=== PATIENT | male | born 1990 | race Caucasian/White ===

== ENCOUNTER 2023-04-13 17:13 | Emergency (ER) | payer OTHER, SELFPAY ==
[2023-04-13 17:14] VITALS: BP 138/64; PULSE 76; RESP 22; TEMP 36; O2SAT 100; BMI 37.4
--- NOTE | 2023-04-13 17:25 | CT_ITS ---
STUDY: CT Abdomen And Pelvis W/O Contrast Injection 04/13/2023 6:31 PM REASON FOR EXAM: Male, 32 years old. ABDOMINAL PAIN left flank pain TECHNIQUE: Transaxial images were obtained without oral contrast, and without intravenous contrast. Individualized dose optimization techniques were used for this CT. COMPARISON: None FINDINGS: The visualized lung bases are unremarkable. The visualized portions of the heart are within normal limits. There is hepatomegaly with diffuse hepatic enlargement. Unremarkable gallbladder and extrahepatic biliary system. Unremarkable spleen. Unremarkable pancreas. Unremarkable bilateral adrenal glands. No acute findings of the right kidney. Moderate hydroureter and hydronephrosis caused by 5.1 mm mid left ureteral stone. Unremarkable visualized stomach. Unremarkable small intestine. Unremarkable colon. The appendix is visualized and appears unremarkable. There are no acute findings of the abdominal aorta. Unremarkable inferior vena cava. Subcentimeter mesenteric lymph nodes. Unremarkable urinary bladder. There is an umbilical hernia containing fat. Unremarkable osseous structures. CT/Abdomen/Pelvis without Cont IMPRESSION: (NOT LISTED IN ORDER OF SIGNIFICANCE) Moderate hydroureter and hydronephrosis caused by 5.1 mm mid left ureteral stone. Enlarged liver. Other findings as above. Electronically Signed: Diaz Nunez MD at 18:34 [facility] ,
--- NOTE | 2023-04-13 17:26 | EDS_ITS ---
<Statement entered by Gemma Siu MD - 04/14/23 00:50> I have personally performed a face to face assessment of the patient and have reviewed the [facility] Note. Patient presents with spouse secondary to left flank pain and vomiting. Patient had onset of left flank pain around 9 or 930 this morning accompanied with nausea and vomiting. He denies history of kidney stone. No recent illness. Patient sitting upright in bed. Uncomfortable but in no acute distress. Head and neck examination unremarkable. Heart is regular rate and rhythm. Lung sounds are clear. Abdomen is soft with no reproducible tenderness. Mild left CVA tenderness. CBC and chemistry studies significant for creatinine 1.49. We do not have any prior values to compare to. Urinalysis reveals no evidence of infection. CT flank reveals a 5 mm left mid ureteral stone. Patient's pain is well-controlled at this time. He will be discharged with analgesics, antiemetics, and Flomax. He is referred to Dr. aVldez for follow- up. Return instructions given. HPI History of Present Illness Chief Complaint: Flank Pain Narrative Narrative: 32-year-old male with PMH of DM2 developed left flank pain radiating around to the left abdomen this morning and started vomiting around 9 AM. No fever or chills. States he is urinating normally today without burning or hematuria. He thinks he had a normal bowel movement yesterday. No recent melena or hematochezia. No history of kidney stones or abdominal surgeries. PFSH PFS Medical History no medical history Home Medications ondansetron 4 mg disintegrating tablet 4 mg PO Q6H PRN nausea and vomiting #12 tabs 04/13/23 [Rx Last Taken Unknown] oxycodone-acetaminophen 5 mg-325 mg tablet (Percocet) 1 tab PO Q6H PRN pain 3 days #12 tabs 04/13/23 [Rx Last Taken Unknown] tamsulosin 0.4 mg capsule (Flomax) 0.4 mg PO DAILY 7 days #7 caps 04/13/23 [Rx Last Taken Unknown] Allergy/AdvReac Type Severity Reaction Status Date / Time No Known Allergies Allergy Verified 04/13/23 17:14 Family History no significant family his Surgical History no surgical history Social History Smoking Status: Unknown if ever smoked ROS ROS ED ROS Narrative Constitutional: Negative for fever, chills, malaise. CVS: Negative for chest pain. Respiratory: Negative for shortness of breath, cough. GI: Positive for abdominal pain, nausea, vomiting. Negative for diarrhea, const ipation, melena, hematochezia. : Negative for dysuria, hematuria or frequency. EXAM Physical Exam Narrative Exam Narrative: CONST: Patient pacing the room, and discomfort. EYES: Normal inspection. NECK: Normal inspection. RESP: No respiratory distress, CTAB. CVS: Regular rate and rhythm, no murmur, no gallop. ABD: Soft with left lower quadrant tenderness, no guarding or rebound, nondistended. Back: Normal inspection, left CVA tenderness. SKIN: Color normal, no rash, warm, dry, intact. EXTREMITIES: Normal appearance, no pedal edema. NEURO: Oriented x4. PSYCH: Normal affect. Const Vital Signs: 04/13/23 17:14 Temperature 96.8 F L Temperature Source Temporal Pulse Rate 76 Respiratory Rate 22 H Blood Pressure 138/64 H Blood Pressure Mean 88 Pulse Ox 100 Oxygen Delivery Method Room Air MDM MDM MDM Narrative Medical decision making narrative: History gathered from: Patient and spouse Differential: Kidney stone, pyelonephritis, UTI, diverticulitis among others Patient had sudden onset left flank pain radiating to the left abdomen with nausea and vomiting. He appears uncomfortable and is pacing the room. Vital signs are stable. He has left lower abdominal tenderness and left flank pain. No peritoneal signs. Workup shows white count of 15.7, normal electrolytes, creatinine 1.49 with no prior for comparison, and UA has blood but no infection. CT shows 5 mm left mid ureteral stone causing moderate hydroureter and hydronephrosis. Patient's pain was adequately controlled after Zofran, morphine and Toradol. He is tolerating p.o. intake and is comfortable going home. I prescribed Percocet, Zofran, and Flomax with return precautions and urology follow-up. He was discharged in stable condition. Lab Data Attestation: I reviewed the patient's lab results. Labs: Laboratory Results - last 24 hr 04/13/23 04/13/23 17:50 19:17 WBC 15.7 H RBC 5.15 Hgb 14.4 Hct 42.7 MCV 82.9 MCH 28.0 MCHC 33.7 RDW Std Deviation 39.4 RDW Coeff of Julieta 13.2 Plt Count 328 MPV 9.9 Immature Gran % (Auto) 0.400 Neut % (Auto) 89.5 H Lymph % (Auto) 6.3 L [place] % (Auto) 3.2 Eos % (Auto) 0.1 Baso % (Auto) 0.5 Absolute Neuts (auto) 14.0 H Absolute Lymphs (auto) 0.98 Nucleated RBC % 0 Sodium 141 Potassium 3.9 Chloride 114 H Carbon Dioxide 20.0 L Anion Gap 7 BUN 22 H Creatinine 1.49 H Estim Creat Clear Calc 104.77 Est GFR (MDRD) Af Amer 70 Est GFR (MDRD) Non-Af 58 L BUN/Creatinine Ratio 14.8 Glucose 153 H Calcium 10.2 H Urine Color Yellow Urine Clarity Sl. Cloudy Urine pH 6.0 Ur Specific [place] 1.025 Urine Protein 30 H Urine Glucose (UA) Normal Urine Ketones 150 A* Urine Occult Blood 250 H Urine Nitrite Negative Urine Bilirubin Negative Urine Urobilinogen 1 H Ur Leukocyte Esterase 25 H Urine RBC 10-25 SEEN Urine WBC 0-5 SEEN Ur Squamous Epith Cells 0-5 SEEN Amorphous Sediment 1+ URATE Urine Bacteria 0 SEEN Urine Mucus 3+ Radiography Diagnostic Testing: Clinical Impression(s) from Imaging Studies Abdomen/Pelvis CT 04/13/23 17:25 IMPRESSION: (NOT LISTED IN ORDER OF SIGNIFICANCE) Moderate hydroureter and hydronephrosis caused by 5.1 mm mid left ureteral stone. Enlarged liver. Other findings as above. Electronically Signed: Diaz Nunez MD at 18:34 EST Reading Location ID and State: [address] [place] [address] , Service support , Discharge Plan Triage Chief Complaint: Flank Pain Other Complaint: Nausea/Vomiting ED Midlevel Provider: Tonya Pedro ED Provider: Gemma Siu Dx/Rx/DC Orders Clinical Impression: Creatinine elevation, Calculus of left kidney Instructions: ED Kidney Stone with Pain Prescriptions: New oxycodone-acetaminophen [Percocet] 5-325 mg tablet 1 tab PO Q6H PRN (Reason: pain) 3 Days Qty: 12 0RF ondansetron 4 mg tablet,disintegrating 4 mg PO Q6H PRN (Reason: nausea and vomiting) Qty: 12 0RF tamsulosin [Flomax] 0.4 mg capsule 0.4 mg PO DAILY 7 Days Qty: 7 0RF Stand Alone Forms: ED Work / School Excuse Primary Care Provider: Care Physician,No Primary Referrals: William Valdez MD [Med Staff - Active Staff] - Care Physician,No Primary [Primary Care Provider] - Activity Restrictions/Additional Instructions: You have a 5 mm left-sided kidney stone. In addition to the prescribed medications you can take ibuprofen 600 mg every 6 hours for pain control. Return if symptoms worsen, follow-up with urology. Disposition Disposition: Home, Self Care
[2023-04-13] MEDS: Ondansetron 4 MG/2 ML Vial IV (17:43)
[2023-04-13] MEDS: 0.9% Normal Saline (1000mL) 1,000 ML 1000 ML IV (17:44)
[2023-04-13] MEDS: Ketorolac 30 MG/ML Syringe IV (17:45)
[2023-04-13 18:01] LABS: Absolute Lymphocyte Count 0.98 X10^3/uL (0.83-4.51); Basophil# 0.08 X10^3/uL; Basophil% 0.5 % (0-1); Eosinophil# 0.01 X10^3/uL; Eosinophils% 0.1 % (0-5); Hematocrit 42.7 % (40-54); Hemoglobin 14.4 g/dL (13.0-16.5); Lymphocyte # 0.98 X10^3/ul (0.83-4.51); Lymphocyte % 6.3 % (19-41); Mean Corp Hgb Conc 33.7 g/dL (32-36); Mean Corpuscular Volume 82.9 fL (80-94); Mean Platelet Vol. 9.9 fl (6.2-12.0); Monocyte% 3.2 % (0-10); NRBC Flagged by Analyzer 0 % (0-5); Neutrophil # 14.03 X10^3/uL (2.7-7.7); Neutrophil % 89.5 % (47-70); Platelet Count 328 K/mm3 (150-450); RBC Distribution Width CV 13.2 % (11.6-14.6); RBC Distribution Width SD 39.4 fl (35.1-43.9); Red Blood Count 5.15 M/mm3 (4.6-6.2); White Blood Count 15.7 K/mm3 (4.4-11.0)
[2023-04-13] MEDS: Morphine 4 MG/ML Syringe IV (18:09)
[2023-04-13 18:14] LABS: Anion Gap 7 (5-15); BUN 22 mg/dL (7-18); BUN/Creat Ratio 14.8 RATIO (10-20); Calcium,Total 10.2 mg/dL (8.5-10.1); Chloride 114 mmol/L (98-107); Creatinine, Serum 1.49 mg/dL (0.70-1.30); EST Glomerular Filtration Rate 58 mL/min (>60); Est Glom Filt Rate - Afr Amer 70 mL/min (>60); Estimated Creatinine Clearance 104.77 ml/min; Glucose 153 mg/dL (74-106); Potassium 3.9 mmol/L (3.5-5.1); Sodium Level 141 mmol/L (136-145)
[2023-04-13 19:24] LABS: Bacteria 0 SEEN /hpf (None Seen)
[2023-04-13 19:27] LABS: Color, Urine Yellow (Yellow); Glucose, Dipstick Normal (Normal); Leukocyte Esterase-Dipstick 25 /ul (Negative); Nitrite-Dipstick Negative (Negative); Occult Blood-Urine 250 /ul (Negative); Protein-Dipstick 30 mg/dl (Negative); Specific Gravity, Urine 1.025 (1.002-1.030); Urine Bilirubin Dipstick Negative (Negative); Urine Clarity Sl. Cloudy (Clear); Urine Urobilinogen 1 mg/dl (Normal)
[2023-04-13 19:33] LABS: Ketone-Dipstick 150 mg/dl (Negative)
[2023-04-13 19:46] LABS: White Blood Cells 0-5 SEEN /hpf (0-5)
[2023-04-13 19:47] LABS: Amorphous Sediment 1+ URATE; Mucous, Urine 3+ /hpf (<or=2+); Red Blood Cells-Urine 10-25 SEEN /hpf (0-5); Squamous Epithelial Cells - UA 0-5 SEEN /hpf (0-5)
[2023-04-13] MEDS: Oxycodone/Apap 5/325 Tablet PO (20:38)
[2023-04-13] MEDS: Ondansetron ODT 4 MG Tablet PO (20:38)
[2023-04-13 20:50] VITALS: BP 133/60; PULSE 78; RESP 16; TEMP 36.8; O2SAT 97
== END 2023-04-13 21:23 | disposition home or self-care (01) ==
PROVIDERS: Physician Assistant; Emergency Provider Emergency Medicine; Visit Provider Emergency Medicine
DX: N13.2 Hydronephrosis with renal and ureteral calculous obstruction (principal); R79.89 Other specified abnormal findings of blood chemistry
CPT/HCPCS: 74176; 80048; 81001; 85025; 96361; 96374; 96375; 99284; J7030; A4216; J2405

== ENCOUNTER 2023-09-26 11:35 | Emergency (ER) | payer OTHER, SELFPAY ==
[2023-09-26 11:36] VITALS: BP 184/163; PULSE 112; RESP 20; TEMP 35.7; O2SAT 96; BMI 30.2
--- NOTE | 2023-09-26 12:18 | CT_ITS ---
STUDY: CT ABDOMEN AND PELVIS WITHOUT CONTRAST REASON FOR EXAM: Male, 33 years old. Left flank pain. History of kidney stones. RADIATION DOSAGE (If Supplied By Facility): CTDIvol = ( 16.05 ) mGy, DLP = ( 818.01 ) mGycm TECHNIQUE: Transaxial images were obtained from the dome of the diaphragm to the symphysis pubis without oral contrast, and without intravenous contrast. Sagittal and coronal images were reconstructed. Individualized dose optimization techniques were used for this CT. COMPARISON: Comparison is made with prior study dated April 13, 2023. FINDINGS: The visualized lung bases are unremarkable. The visualized portions of the heart are within normal limits. Normal liver. Normal gallbladder and extrahepatic biliary system. Normal spleen. Normal pancreas. Normal bilateral adrenal glands. Normal right kidney. There is a moderate degree of left hydronephrosis with left perinephric stranding. Mild degree of left hydroureter due to a 3.3 mm calculus in the midportion of the left ureter. Normal visualized stomach. Normal small intestine. Normal colon. The appendix is visualized and appears normal. Normal abdominal aorta. Normal inferior vena cava. Normal retroperitoneum. Subcentimeter mesenteric lymph nodes. Normal urinary bladder. There are prostatic calcifications. Normal abdominal wall. Normal osseous structures. CT/Abdomen/Pelvis without Cont IMPRESSION: 3.3 mm calculus in the midportion of the left ureter causing left hydronephrosis and left hydroureter. Electronically Signed: Miguel Robledo MD at 12:55 EDT ,
--- NOTE | 2023-09-26 12:18 | EDS_ITS ---
HPI HPI - GI History of Present Illness Chief Complaint: Flank Pain Narrative Narrative: 33-year-old male past medical history of diabetes, previous ureterolithiasis presents with left-sided flank pain that began sometime last week. He had it intermittently. Last evening, it intensified. He states he has not urinated since yesterday evening but prior to this that, denies any dysuria, hematuria, or dark urine. No fevers or chills. He is nauseated and vomited twice today. He took an NSAID this morning at 5:00, approximately 7 hours ago. He presents with the same feeling that he had when he had a kidney stone previously. He states he followed up with urology at that time. No exacerbating or alleviating factors. Prior similar symptoms: Yes (With previous kidney stone) [facility] Medical History Diabetes Kidney stones Home Medications ?Medication ?Instructions ?Recorded ?Last Taken ?Type ketorolac 10 mg tablet 10 mg PO TID PRN pain 5 days #15 09/26/23 Unknown Rx tabs ondansetron 4 mg disintegrating 4 mg PO Q6H PRN nausea and 09/26/23 Unknown Rx tablet vomiting #15 tabs oxycodone-acetaminophen 5 mg-325 1 tab PO Q6H PRN pain 3 days #12 09/26/23 Unknown Rx mg tablet (Percocet) tabs tamsulosin 0.4 mg capsule (Flomax) 0.4 mg PO DAILY #10 caps 09/26/23 Unknown Rx Allergy/AdvReac Type Severity Reaction Status Date / Time No Known Allergies Allergy Verified 09/26/23 11:36 Social History Smoking Status: Current every day smoker tobacco type: e-cigarettes ROS ROS ED ROS Narrative Constitutional: No fever, no chills. HEENT: No sore throat. No neck pain. No loss of vision. No rhinorrhea. Cardiovascular: No chest pain. No palpitations. No pedal edema. Respiratory: No cough, no shortness of breath. Abdominal: No abdominal pain. 2 episodes of nausea and vomiting today. Genitourinary: Positive dysuria/unable to urinate. No hematuria. Positive left flank pain Musculoskeletal: No myalgias. No arthralgias. Neurologic: No headaches. No dizziness. No lightheadedness. Skin: No rash. No change in color. Psychiatric: No depression. No anxiety. EXAM Physical Exam Narrative Exam Narrative: Afebrile. Vital signs noted. HEENT: Normocephalic. Atraumatic. PERRL, EOMI. Neck soft and supple. No point tenderness or step off. Cardiovascular: Positive tachycardia no murmurs, rubs, or gallops appreciated. Respiratory: No tachypnea. Lungs clear to auscultation bilaterally. Gastrointestinal: Abdomen soft, nontender, with normoactive bowel sounds. No rebound or guarding. CVA tenderness to percussion. Neurological: Awake. Alert. Nonfocal, nonlateralizing. Skin: No rash. Normal color. No pallor. Musculoskeletal: No pedal edema. Full range of motion extremities. Const Vital Signs: 09/26/23 11:36 09/26/23 12:25 09/26/23 13:00 Temperature 96.2 F L Temperature Source Temporal Pulse Rate 112 H 80 78 Respiratory Rate 20 H 16 16 Blood Pressure 184/163 H 135/86 H 118/70 Blood Pressure Mean 170 102 86 Pulse Ox 96 99 99 Oxygen Delivery Method Room Air Room Air Room Air 09/26/23 14:06 09/26/23 14:52 Temperature 96.2 F L Temperature Source Pulse Rate 69 68 Respiratory Rate 16 16 Blood Pressure 124/76 H 122/72 H Blood Pressure Mean 92 88 Pulse Ox 99 100 Oxygen Delivery Method MDM MDM MDM Narrative Medical decision making narrative: In the differential for left flank pain is ureterolithiasis with ureteral colic versus musculoskeletal versus pyelonephritis. History and physical does not support pyelonephritis. I reviewed his prior ED visit and he did have a 5 mm ureteral calculus. He was treated with ondansetron, morphine, and Toradol here which had controlled his pain last time as well. I will obtain urinalysis and basic laboratory work along with CT imaging. I reviewed the laboratory work and WBC count normal at 8.1 with hemoglobin 14.1, platelet count normal at 323. Electrolyte panel shows BUN slightly elevated 22 with creatinine 1.36 but this is improved from prior. Glucose is elevated at 109 with a normal anion gap of 9 so I have no concern for diabetic ketoacidosis. Urinalysis does show 50 ketones but negative for infection with 0 WBCs and 5-10 RBCs. I reviewed the radiology report of the CT of the abdomen pelvis and there is a 3.3 mm calculus in the left mid ureter causing hydronephrosis and hydroureter. Upon repeat examination after morphine, Toradol, and ondansetron, patient is feeling improved. As he has no infection in his urine I do not feel antibiotics are indicated. He was written prescriptions for Percocet, Flomax, Zofran, and Toradol. He will follow-up with urology in 5 to 7 days. Return instructions were reviewed. Disposition is discharged home in stable condition. History & Record Review Discussion w/independent historian: Patient Additional record(s) reviewed:: Prior ED visit (Ureterolithiasis a 5 mm) Lab Data Attestation: I reviewed the patient's lab results. Labs: Laboratory Results - last 24 hr 09/26/23 09/26/23 11:45 14:01 WBC 8.1 RBC 4.97 Hgb 14.1 Hct 41.8 MCV 84.1 MCH 28.4 MCHC 33.7 RDW Std Deviation 39.8 RDW Coeff of Julieta 13.0 Plt Count 323 MPV 10.2 Immature Gran % (Auto) 0.400 Neut % (Auto) 58.1 Lymph % (Auto) 28.5 [place] % (Auto) 8.7 Eos % (Auto) 3.3 Baso % (Auto) 1.0 Absolute Neuts (auto) 4.7 Absolute Lymphs (auto) 2.30 Nucleated RBC % 0 Sodium 138 Potassium 3.9 Chloride 110 H Carbon Dioxide 19.0 L Anion Gap 9 BUN 22 H Creatinine 1.36 H Estim Creat Clear Calc 102.41 Est GFR (MDRD) Af Amer 77 Est GFR (MDRD) Non-Af 64 BUN/Creatinine Ratio 16.2 Glucose 109 H Calcium 9.6 Urine Color Yellow Urine Clarity Clear Urine pH 5.0 Ur Specific [place] 1.030 Urine Protein 30 H Urine Glucose (UA) Normal Urine Ketones 50 H Urine Occult Blood 25 H Urine Nitrite Negative Urine Bilirubin 1 H Urine Urobilinogen 1 H Ur Leukocyte Esterase Negative Urine RBC 5-10 SEEN Urine WBC 0 SEEN Ur Squamous Epith Cells 0-5 SEEN Calcium Oxalate Crystal 2+ Urine Bacteria 1+ Urine Mucus 2+ Radiography Diagnostic Testing: Clinical Impression(s) from Imaging Studies Abdomen/Pelvis CT 09/26/23 12:18 IMPRESSION: 3.3 mm calculus in the midportion of the left ureter causing left hydronephrosis and left hydroureter. Electronically Signed: Miguel Robledo MD at 12:55 EDT , Discharge Plan Triage Chief Complaint: Flank Pain ED Provider: John Holliday Dx/Rx/DC Orders Clinical Impression: Left ureteral calculus, Nausea and vomiting Instructions: ED Vomiting (Adult), ED Kidney Stone with Pain Prescriptions: New oxycodone-acetaminophen [Percocet] 5-325 mg tablet 1 tab PO Q6H PRN (Reason: pain) 3 Days Qty: 12 0RF ondansetron 4 mg tablet,disintegrating 4 mg PO Q6H PRN (Reason: nausea and vomiting) Qty: 15 0RF tamsulosin [Flomax] 0.4 mg capsule 0.4 mg PO DAILY Qty: 10 0RF ketorolac 10 mg tablet 10 mg PO TID PRN (Reason: pain) 5 Days Qty: 15 0RF Primary Care Provider: Care Physician,No Primary Referrals: William Valdez MD [Med Staff - Active Staff] - 5-7 Days Care Physician,No Primary [Primary Care Provider] - Print Language: Malawian Disposition Disposition: Home, Self Care Discharge Date/Time: 09/26/23 14:53
[2023-09-26] MEDS: Ketorolac 15 MG/ML Vial IV (12:22)
[2023-09-26] MEDS: Ondansetron 4 MG/2 ML Vial IV (12:23)
[2023-09-26] MEDS: Morphine 4 MG/ML Syringe IV (12:23)
[2023-09-26 12:25] VITALS: BP 135/86; PULSE 80; RESP 16; O2SAT 99
[2023-09-26] MEDS: 0.9% Normal Saline (1000mL) 1,000 ML 250 ML IV (12:30)
[2023-09-26 13:00] VITALS: BP 118/70; PULSE 78; RESP 16; O2SAT 99
[2023-09-26 13:03] LABS: Absolute Neutrophil Count 4.7 X10^3/uL (2.0-7.7); Basophil# 0.08 X10^3/uL; Eosinophil# 0.27 X10^3/uL; Eosinophils% 3.3 % (0-5); Hematocrit 41.8 % (40-54); Hemoglobin 14.1 g/dL (13.0-16.5); Lymphocyte % 28.5 % (19-41); Mean Corp Hgb Conc 33.7 g/dL (32-36); Mean Corpuscular Hgb 28.4 pg (27.0-32.0); Mean Corpuscular Volume 84.1 fL (80-94); Mean Platelet Vol. 10.2 fl (6.2-12.0); Monocyte% 8.7 % (0-10); NRBC Flagged by Analyzer 0 % (0-5); Neutrophil % 58.1 % (47-70); Platelet Count 323 K/mm3 (150-450); RBC Distribution Width SD 39.8 fl (35.1-43.9); Red Blood Count 4.97 M/mm3 (4.6-6.2); White Blood Count 8.1 K/mm3 (4.4-11.0)
[2023-09-26 13:08] LABS: Anion Gap 9 (5-15); BUN 22 mg/dL (7-18); BUN/Creat Ratio 16.2 RATIO (10-20); Calcium,Total 9.6 mg/dL (8.5-10.1); Chloride 110 mmol/L (98-107); Creatinine, Serum 1.36 mg/dL (0.70-1.30); EST Glomerular Filtration Rate 64 mL/min (>60); Est Glom Filt Rate - Afr Amer 77 mL/min (>60); Estimated Creatinine Clearance 102.41 ml/min; Glucose 109 mg/dL (74-106); Potassium 3.9 mmol/L (3.5-5.1); Sodium Level 138 mmol/L (136-145)
[2023-09-26 14:06] VITALS: BP 124/76; PULSE 69; RESP 16; O2SAT 99
[2023-09-26 14:06] LABS: White Blood Cells 0 SEEN /hpf (0-5)
[2023-09-26 14:12] LABS: Color, Urine Yellow (Yellow); Glucose, Dipstick Normal (Normal); Ketone-Dipstick 50 mg/dl (Negative); Leukocyte Esterase-Dipstick Negative /ul (Negative); Nitrite-Dipstick Negative (Negative); Occult Blood-Urine 25 /ul (Negative); Protein-Dipstick 30 mg/dl (Negative); Urine Clarity Clear (Clear); Urine Urobilinogen 1 mg/dl (Normal)
[2023-09-26 14:22] LABS: Urine Bilirubin Dipstick 1 mg/dL (Negative)
[2023-09-26 14:24] LABS: Bacteria 1+ /hpf (None Seen); Mucous, Urine 2+ /hpf (<or=2+); Red Blood Cells-Urine 5-10 SEEN /hpf (0-5); Squamous Epithelial Cells - UA 0-5 SEEN /hpf (0-5)
[2023-09-26 14:25] LABS: Calcium Oxalate Crystals Ur 2+ /hpf (<or=2+)
[2023-09-26 14:52] VITALS: BP 122/72; PULSE 68; RESP 16; TEMP 35.7; O2SAT 100
== END 2023-09-26 14:53 | disposition home or self-care (01) ==
PROVIDERS: Emergency Provider Emergency Medicine; Visit Provider Emergency Medicine
DX: N13.2 Hydronephrosis with renal and ureteral calculous obstruction (principal); E11.9 Type 2 diabetes mellitus without complications; R11.2 Nausea with vomiting, unspecified; F17.210 Nicotine dependence, cigarettes, uncomplicated; N13.4 Hydroureter; Z87.442 Personal history of urinary calculi
CPT/HCPCS: 74176; 80048; 81001; 85025; 96361; 96374; 96375; 99282; J7030; A4216; J2405

== ENCOUNTER 2024-10-19 08:59 | Emergency (ER) | payer OTHER, SELFPAY ==
[2024-10-19 09:01] VITALS: BP 147/73; PULSE 58; RESP 16; TEMP 36.3; O2SAT 100
--- NOTE | 2024-10-19 09:17 | EDS_ITS ---
HPI HPI - Female History of Present Illness Chief Complaint: Flank Pain PFSH PFSH Medical History Diabetes Kidney stones Home Medications ?Medication ?Instructions ?Recorded ?Last Taken ?Type cephalexin 500 mg capsule 500 mg PO TID #15 caps 10/19 Unknown Rx multivitamin (Daily Multi-Vitamin 1 tab PO DAILY 10/19 Unknown History tablet) ondansetron 4 mg disintegrating 4 mg PO Q8H PRN PRN Na usea #10 tabs 10/19/24 Unknown Rx tablet oxycodone 5 mg tablet 5 mg PO Q6H PRN pain 3 days #12 10/19/24 Unknown Rx tabs Allergy/AdvReac Type Severity Reaction Status Date / Time No Known Allergies Allergy Verified 10/19/24 09:02 Social History Smoking Status: Former smoker EXAM Physical Exam Const Vital Signs: 10/19/24 09:01 10/19/24 11:00 Temperature 97.4 F L Temperature Source Temporal Pulse Rate 58 L 80 Respiratory Rate 16 14 Blood Pressure 147/73 H 134/80 H Blood Pressure Mean 97 98 Pulse Ox 100 98 Oxygen Delivery Method Room Air MDM MDM MDM Narrative Medical decision making narrative: HISTORY OF PRESENT ILLNESS: Chief complaint: Flank pain 34-year-old male history of kidney stones, diabetes presents with left flank pain. Notes this began last night approximately 9 PM. Notes he feels exact like his prior kidney stone. Notes several episodes of nonbloody nonbilious vomitus. Denies urinary complaints. Denies fall or trauma. Denies lifting heavy objects or any inciting event. Denies family personal history of connective tissue diseases. Denies smoking or high blood pressure history. REVIEW OF SYSTEMS: Pertinent positives: Flank pain, nausea vomiting Pertinent negatives: Dysuria, hematuria, syncope PHYSICAL EXAM: Nursing triage notes reviewed, Vital signs reviewed Constitutional: please see mdm HENT: MMM Eyes: Pupils equal round and reactive to light, Extraocular muscles intact Neck: No stridor, no JVD, full neck ROM Lungs: Clear to auscultation, No wheezing or rales. No increased work of breathing, no conversational dyspnea, no accessory muscle use, no nasal flaring. No respiratory distress noted Heart: Regular rate and rhythm, No murmurs, No rubs and No gallops, 2+ distal pulses (radial, femoral, posterior tibial) in all extremities Abdomen: Soft, there is no tenderness, rigidity, rebound or guarding, no obvious peritoneal signs, no palpable pulsatile abdominal masses, no auscultated abdominal bruit : left CVA TTP Extremities: No edema Neuro: No new focal neurological deficits, cranial nerves II through XII intact, 5/5 strength in all present extremities. Intact sensation to light touch in all present extremities, 2+ reflexes bilateral patella tendons. Skin: No rash or lesions noted MEDICAL DECISION MAKING: Chief Complaint: please see HPI External records reviewed: Reviewed prior imaging studies: Reviewed CT scan of the abdomen pelvis from 2023 showed a 3 mm calculus in the midportion left ureter causing left hydronephrosis and left hydroureter Factors affecting care: nephrolithiasis, type 2 diabetes Social determinants of health: denies smoking History obtained from others: none Consults: none MDM Narrative: The patient was initially hemodynamically stable, afebrile and nontoxic- appearing. Exam with left CVA tenderness. No pulsatile abdominal masses or auscultated bruits noted. Symmetric pulses in all 4 extremities. I considered the following differential diagnosis: Nephrolithiasis, pyelonephritis, musculoskeletal etiology, AAA I obtained a broad lab and imaging workup to further determine if the patient was suffering from a life-threatening etiology. I initially treated the patient with 1 L normal saline, 15 mg of IV Toradol, 4 mg of IV Zofran ALL IMAGES (IF OBTAINED) HAVE BEEN PERSONALLY REVIEWED AND INTERPRETED BY MYSELF. CBC with leukocytosis suggestive of systemic inflammation, no anemia or thrombocytopenia noted BMP without significant Dumont abnormalities, no acute kidney injury LFTs show no evidence of hepatobiliary pathology. Urinalysis shows no evidence of urinary inflammation suggestive of UTI CT scan of the abdomen pelvis shows 5-1/2 mm stone that is distal. Upon reassessment patient was essentially pain-free. I suspect he can pass a stone on his own no clear evidence of UTI. Will give nausea medicine, antibiotics (given leukocytosis and report of pyelonephritis) and narcotic pain medication Strict return precautions were discussed. Urology follow-up arranged. The patient and/or family, caregivers express understanding. The patient and/or family, caregivers agrees with the plan. Shared decision making: I will have a discussion with the patient and or visitors regarding risk/benefits of further testing or admission. They will be made aware of of the risk/benefits inherent in this decision they will be given the opportunity to voice understanding. Total critical care time today provided was at least 0 minutes. This excludes separately billable procedures. Critical care time (if documented) is secondary to the patient having high probability of clinically significant/life threatening deterioration in the patient's condition which required my urgent intervention. Impression: 1. Acute flank pain 2. Nephrolithiasis 3. Hydronephrosis Dispo: discharge home This note was generated with [employer] dictation software. It may contain incorrect words, spelling, and punctuation that were not noted in review of the chart prior to signing. Lab Data Attestation: I reviewed the patient's lab results. Labs: Laboratory Results - last 24 hr 10/19/24 10/19/24 09:30 11:31 WBC 11.9 H RBC 4.96 Hgb 14.5 Hct 41.8 MCV 84.3 MCH 29.2 MCHC 34.7 RDW Std Deviation 35.9 RDW Coeff of Julieta 11.9 Plt Count 248 MPV 9.3 Immature Gran % (Auto) 0.300 Neut % (Auto) 78.6 H Lymph % (Auto) 13.4 L Waldo % (Auto) 7.2 Eos % (Auto) 0.2 Baso % (Auto) 0.3 Absolute Neuts (auto) 9.4 H Absolute Lymphs (auto) 1.59 Nucleated RBC % 0 Sodium 138 Potassium 3.8 Chloride 103 Carbon Dioxide 21.5 Anion Gap 13 BUN 23 H Creatinine 1.26 H Est GFR (MDRD) Non-Af 76 BUN/Creatinine Ratio 18.2 Glucose 109 H Calcium 10.0 Total Bilirubin 0.61 AST 24 ALT 23 Alkaline Phosphatase 60 Total Protein 8.1 Albumin 5.0 Globulin 3.1 Albumin/Globulin Ratio 1.6 Lipase 51 Urine Color Yellow Urine Clarity Clear Urine pH 5.0 Ur Specific [place] 1.025 Urine Protein 30 H Urine Glucose (UA) Normal Urine Ketones 50 H Urine Occult Blood 10 H Urine Nitrite Negative Urine Bilirubin Negative Urine Urobilinogen Normal Ur Leukocyte Esterase Negative Urine RBC 0-5 SEEN Urine WBC 0-5 SEEN Ur Squamous Epith Cells 0 SEEN Urine Bacteria 0 SEEN Urine Mucus 0 SEEN Radiography Chest X-Ray - ED: Read by ED Physician Diagnostic Testing: Clinical Impression(s) from Imaging Studies Abdomen/Pelvis CT 10/19/24 09:20 IMPRESSION: The right kidney has a 0.2 cm nonobstructing stone in the midpole, image 67/237. The left kidney shows moderate hydronephrosis secondary to a 0.55 cm stone in the middle 3rd of the left ureter, image 101/237. The stone is in a similar location to the September 26, 2023 and April 13, 2023 exams. Consider a retrograde study for further characterization. There is stranding in the perinephric fat on the left, which can indicate pyelonephritis. Critical results were discussed with Dr. Lema by Dr. Alaniz at the time of dictation. [facility] Triage Chief Complaint: Flank Pain ED Provider: Felipe Lema Dx/Rx/DC Orders Instructions: ED Kidney Stone with Pain Prescriptions: New oxycodone 5 mg tablet 5 mg PO Q6H PRN (Reason: pain) 3 Days Qty: 12 0RF ondansetron 4 mg tablet,disintegrating 4 mg PO Q8H PRN PRN (Reason: Nausea) Qty: 10 0RF cephalexin 500 mg capsule 500 mg PO TID Qty: 15 0RF No Action multivitamin [Daily Multi-Vitamin] Tablet 1 tab PO DAILY Primary Care Provider: Care Physician,No Primary Referrals: William Valdez MD [Med Staff - Active Staff] - Activity Restrictions/Additional Instructions: Thank you for trusting us with your care today! Your labs images are consistent with a kidney stone. There was some inflammatory changes found in your blood however no definitive evidence of UTI. Given the inflammatory changes found in your blood as well as on your CT scan I did prescribe some antibiotics. Please take until course is complete. Please take Tylenol (2 pills, 650 mg), ibuprofen (2 pills, 400 mg) every 6 hours as needed for pain and fever control. Please take oxycodone for breakthrough pain Please take Zofran as needed for nausea and vomiting Please return to the emergency department if your symptoms change or worsen. Please follow with Urology (Dr. Valdez) for further outpatient evaluation and management. Print Language: Welsh Disposition Disposition: Home, Self Care
--- NOTE | 2024-10-19 09:20 | CT_ITS ---
PROCEDURE: ABDOMEN/PELVIS WITHOUT CONT 10/19/2024 REASON FOR EXAM: LEFT FLANK PAIN RULE OUT NEPHROLITHIASIS TECHNIQUE: ABDOMEN/PELVIS WITHOUT CONT Noncontrast technique limits evaluation of the abdominal and pelvic viscera. Coronal and Sagittal reconstruction series were provided. One or more dose reduction techniques were used (e.g., Automated exposure control, adjustment of the mA and/or kV according to patient size, use of iterative reconstruction technique). RADIATION DOSE SUMMARY: DLP: 1282 mGycm COMPARISON: September 26, 2023, April 13, 2023 FINDINGS: Lung bases: Clear Liver: Unremarkable Gallbladder: Unremarkable Spleen: Unremarkable Pancreas: Unremarkable Adrenals: Unremarkable Kidneys: The right kidney has a 0.2 cm nonobstructing stone in the midpole, image 67/237. The left kidney shows moderate hydronephrosis secondary to a 0.55 cm stone in the middle 3rd of the left ureter, image 101/237. There is stranding in the perinephric fat on the left, which can indicate pyelonephritis. Bladder: Unremarkable Reproductive Organs: Unremarkable Bowel: Gas and stool is noted in the colon. There is a moderate stool load. The small-bowel loops are nondistended. Appendix: The appendix is normal in appearance. Lymph nodes: There is no pathologic adenopathy by size criteria. Vasculature: There is no visible atherosclerosis. Peritoneum / Retroperitoneum: There is no free air or free fluid. Bones: There is no acute bony abnormality. CT/Abdomen/Pelvis without Cont IMPRESSION: The right kidney has a 0.2 cm nonobstructing stone in the midpole, image 67/237 . The left kidney shows moderate hydronephrosis secondary to a 0.55 cm stone in t he middle 3rd of the left ureter, image 101/237. The stone is in a similar location to the September 26, 2023 and April 13, 2023 exams. Consider a retrograde study for further characterization. There is stranding in the perinephric fat on the left, which can indicate pyelo nephritis. Critical results were discussed with Dr. Lema by Dr. Alaniz at the time o f dictation. Reading Location: [facility]
[2024-10-19 09:39] LABS: Hematocrit 41.8 % (40-54); Hemoglobin 14.5 g/dL (13.0-16.5); Immature Granulocytes Count 0.030 X10^3/uL (0.0-0.0); Mean Corp Hgb Conc 34.7 g/dL (32-36); Mean Corpuscular Volume 84.3 fL (80-94); Mean Platelet Vol. 9.3 fl (6.2-12.0); NRBC Flagged by Analyzer 0 % (0-5); Platelet Count 248 K/mm3 (150-450); RBC Distribution Width CV 11.9 % (11.6-14.6); RBC Distribution Width SD 35.9 fl (35.1-43.9); Red Blood Count 4.96 M/mm3 (4.6-6.2); White Blood Count 11.9 K/mm3 (4.4-11.0)
[2024-10-19] MEDS: 0.9% Normal Saline (1000mL) 1,000 ML 999 ML IV ×2 (09:54→11:33)
[2024-10-19 10:13] LABS: AST(SGOT) 24 U/L (<=37); Alanine Aminotransfer ALT/SGPT 23 U/L (<=46); Albumin, Serum 5.0 g/dL (3.5-5.0); Alkaline Phosphatase 60 U/L (40-129); Anion Gap 13 (5-15); BUN 23 mg/dL (4-19); BUN/Creat Ratio 18.2 RATIO (10-20); Calcium,Total 10.0 mg/dL (7.6-11.0); Carbon Dioxide 21.5 mmol/L (21.0-32.0); Chloride 103 mmol/L (98-108); Globulin 3.1 g/dL (2.2-4.2); Glucose 109 mg/dL (70-99); Lipase 51 U/L (13-75); Potassium 3.8 mmol/L (3.3-5.1)
[2024-10-19 11:00] VITALS: BP 134/80; PULSE 80; RESP 14; O2SAT 98
[2024-10-19 11:34] LABS: Mucous, Urine 0 SEEN /hpf (<or=2+); Squamous Epithelial Cells - UA 0 SEEN /hpf (0-5)
[2024-10-19 11:35] LABS: Color, Urine Yellow (Yellow); Glucose, Dipstick Normal (Normal); Ketone-Dipstick 50 mg/dl (Negative); Leukocyte Esterase-Dipstick Negative /ul (Negative); Nitrite-Dipstick Negative (Negative); Occult Blood-Urine 10 /ul (Negative); Protein-Dipstick 30 mg/dl (Negative); Specific Gravity, Urine 1.025 (1.002-1.030); Urine Bilirubin Dipstick Negative (Negative)
[2024-10-19 11:44] LABS: Red Blood Cells-Urine 0-5 SEEN /hpf (0-5)
[2024-10-19 11:50] VITALS: BP 134/80; PULSE 80; RESP 14; TEMP 36.8; O2SAT 98
== END 2024-10-19 11:58 | disposition home or self-care (01) ==
PROVIDERS: Emergency Provider Emergency Medicine; Visit Provider Emergency Medicine
DX: N13.2 Hydronephrosis with renal and ureteral calculous obstruction (principal); E11.9 Type 2 diabetes mellitus without complications; Z87.891 Personal history of nicotine dependence; R10.9 Unspecified abdominal pain
CPT/HCPCS: 74176; 80053; 81001; 83690; 85025; 96361; 96374; 96375; 99283; A4216; J2405